=== PATIENT | male | born 1970 | race Caucasian/White ===

== ENCOUNTER 2024-01-14 11:14 | Emergency (ER) | payer OTHER, SELFPAY ==
[2024-01-14 11:17] VITALS: BP 149/87; PULSE 62; TEMP 36.6; O2SAT 98; BMI 23.7
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
--- NOTE | 2024-01-14 11:46 | CT_ITS ---
[address] [address] Patient Name: WILEY LANDRUM MRN: [id number] date: 1970 Sex: M Assigned Patient Location: ER Current Patient Location: ER Accession/Order Number: [id number] Exam Date: 01/14/2024 11:40 Report Date: 01/14/2024 12:13 At the request of: MONIKA LANDRUM Procedure: CT cervical spine wo con PROCEDURE: CT cervical spine wo con COMPARISON: None. HISTORY: Cervical spine pain, injury TECHNIQUE: Dose reduction techniques were achieved by using automated exposure control and/or adjustment of mA and/or kV according to patient size and/or use of iterative reconstruction technique. FINDINGS: BONES: Reversal normal lordotic curvature of cervical spine. No compression fracture or significant listhesis. Left laminectomy with screw and plate repair and prior fracture/disruption of right lamina at C3, C4, C5, and C6. PARASPINAL AREA: Normal with no visible mass. CERVICAL DISC LEVELS: C2-C3: No significant disc/facet abnormality, spinal stenosis, or foraminal stenosis C3-C4: Moderate central canal and marked bilateral foramen narrowing. Moderate disc height reduction and large posterior disc osteophyte complex. Mild facet arthropathy. C4-C5: Mild central canal narrowing. Marked right, moderate left foramen narrowing. Mild diffuse disc bulging and moderate disc height reduction. Mild facet arthropathy. C5-C6: Mild central canal narrowing. Marked right foramen narrowing; no significant left foramen narrowing. Mild disc at reduction and large posterior disc osteophyte complex. Mild facet arthropathy. C6-C7: Mild-moderate central canal narrowing and bilateral mild foramen narrowing. Mild disc height reduction with moderate posterior disc-osteophyte complex. Mild facet arthropathy. C7-T 1: Mild central canal narrowing. Marked left, moderate right foramen narrowing. Moderate disc height reduction and moderate posterior disc osteophyte complex along with uncovertebral joint spurring. Mild facet arthropathy. CT/CT cervical spine wo con IMPRESSION: 1. Multilevel moderate to marked foramen narrowing involving C3-4, C4-5, C5-6, and C7-T1. 2. Multilevel mild central canal narrowing. Prior left laminectomy and plate repair at the C3-C6 levels appears to provide adequate room within the central canal. 3. Multilevel large posterior disc osteophyte complexes and mild facet arthropathy. Electronically authenticated by: SON BRADLEY Date: 01/14/2024 12:13
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
== END 2024-01-14 12:49 | disposition home or self-care (01) ==
PROVIDERS: Emergency Provider Student in an Organized Health Care Education/Training Program; PCP Family Medicine
DX: S13.4XXA Sprain of ligaments of cervical spine, initial encounter (principal); V88 Nontraffic accident of specified type but victim's mode of transport unknown
CPT/HCPCS: 72125; 99284